=== PATIENT | male | born 1950 | race African-American/Black ===

== ENCOUNTER 2022-09-10 22:13 | Inpatient (IN) | payer MEDICARE, OTHER ==
[~2022-09-10] VITALS: Ht 185.4 cm; Wt 105.0 kg
[2022-09-10 23:13] LABS: Basophils # (auto) 0 10 ^3/uL (0-0.2); Basophils % (auto) 0.9 % (0.0-2.0); Eosinophils # (auto) 0.2 10 ^3/uL (0-0.8); Eosinophils % (auto) 4.7 % (0.0-7.0); Hematocrit 38.1 % (41.0-53.0); Hemoglobin 12.5 g/dL (13.5-17.5); Lymphocytes # (auto) 1.2 10 ^3/uL (0.4-5.4); Mean Corpuscular Hgb Conc. 32.8 g/dL (32.0-36.0); Mean Corpuscular Volume 94.7 fL (80.0-100.0); Monocytes # (auto) 0.4 10 ^3/uL (0-1.3); Monocytes % (auto) 7.5 % (0.0-12.0); Neutrophils # (auto) 3.3 10 ^3/uL (1.6-8.6); Neutrophils % (auto) 62.9 % (37.0-80.0); Nucleated Red Blood Cells % 0.2 %; Red Blood Cells 4.03 10^6/uL (4.5-5.90); Red Cell Distribution Width 17.3 % (11.8-14.3); White Blood Cell 5.2 10^3/uL (4.4-10.8)
[2022-09-10 23:20] LABS: Albumin 3.7 g/dL (3.4-5.0); BUN/Creatinine Ratio 6.1; Calcium 11.3 mg/dL (8.5-10.1); Magnesium 2.3 mg/dL (1.6-2.6); Potassium 4.3 mmol/L (3.5-5.1)
[2022-09-10 23:22] LABS: Bilirubin, Total 0.5 mg/dL (0.2-1.0); Total Protein 7.5 g/dL (6.4-8.2)
[2022-09-11] MEDS ORDERED: DEXTROSE (50%) 50ML SYRG IV PRN (07:00)
[2022-09-11] MEDS ORDERED: ONDANSETRON HCL 4 MG/2 ML VIAL IV PRN (07:00)
[2022-09-11] MEDS: InsuLIN REG 1unit/0.01ml Soln (100units/ml) SC SCH ×4 (08:13→21:12)
[2022-09-11] MEDS: ACCU-CHEK COMFORT CURVE STRIP VI SCH ×4 (08:14→21:12)
[2022-09-11] MEDS: NIFEdipine ER 30 MG TAB PO SCH (09:49)
[2022-09-11] MEDS: CLOPIDOGREL BISULFATE 75 MG TAB PO SCH (09:49)
[2022-09-11] MEDS: SEVELAMER 800 MG TAB PO SCH ×3 (09:50→17:17)
[2022-09-11] MEDS: AZITHROMYCIN 500MG/ 250ML 250 ML IV SCH (09:50)
[2022-09-11] MEDS: cloNIDine HCL 0.1 MG TAB PO PRN ×2 (13:39→21:12)
[2022-09-11 14:20] LABS: Albumin 3.5 g/dL (3.4-5.0); Calcium 10.5 mg/dL (8.5-10.1); Potassium 4.5 mmol/L (3.5-5.1)
[2022-09-11 14:23] LABS: BUN/Creatinine Ratio 6.4; Bilirubin, Total 0.3 mg/dL (0.2-1.0)
[2022-09-11 20:41] VITALS: BP 190/72
[2022-09-11] MEDS ORDERED: LABETALOL HCL 5 MG/ML 4ML SYRINGE IV ONE (21:15)
[2022-09-11] MEDS: ATORVASTATIN 20 MG TAB PO SCH (21:16)
[2022-09-11 22:18] VITALS: BP 190/72
[2022-09-11] MEDS ORDERED: BUPR-60 PO (22:20)
[2022-09-11] MEDS ORDERED: ALLO100T PO (22:20)
[2022-09-11] MEDS ORDERED: CLOP75TA70 PO (22:20)
[2022-09-11] MEDS ORDERED: B-CO-5 PO (22:20)
[2022-09-11] MEDS ORDERED: OMEP-260 PO (22:20)
[2022-09-11] MEDS ORDERED: ATOR-47 PO (22:20)
[2022-09-11] MEDS ORDERED: ASCO-75 PO (22:20)
[2022-09-11 22:30] VITALS: BP 138/63
[2022-09-11] MEDS ORDERED: ALL100T PO (22:31)
[2022-09-11] MEDS ORDERED: CINA60TA PO (22:31)
[2022-09-11] MEDS ORDERED: ASPI81TA10 PO (22:31)
[2022-09-11] MEDS ORDERED: SEVE800T20 PO (22:31)
[2022-09-11] MEDS ORDERED: ONDA-144 PO (22:32)
[2022-09-11] MEDS ORDERED: OMEP-434 PO (22:33)
[2022-09-11] MEDS ORDERED: BISA10SU5 RE (22:34)
[2022-09-11] MEDS ORDERED: CALC0.25 PO (22:34)
[2022-09-11] MEDS ORDERED: TIMO0.5S32 OP (22:36)
[2022-09-11] MEDS ORDERED: NIFE1TAB30 PO (22:39)
[2022-09-11] MEDS ORDERED: INSU100I51 SC (22:41)
[2022-09-11] MEDS ORDERED: INSU1INJ19 SC (22:41)
[2022-09-12 01:39] VITALS: BP 177/91
[2022-09-12] MEDS ORDERED: hydrALAZINE HCL 20 MG/ML VL IV ONE (06:30)
[2022-09-12] MEDS: ACCU-CHEK COMFORT CURVE STRIP VI SCH ×4 (06:42→22:20)
[2022-09-12] MEDS: InsuLIN REG 1unit/0.01ml Soln (100units/ml) SC SCH ×4 (06:43→22:00)
[2022-09-12] MEDS ORDERED: SODIUM CHL 0.9% 1000 ML BAG XX ONE (07:00)
[2022-09-12 09:00] VITALS: BP 180/85
[2022-09-12] MEDS: NIFEdipine ER 30 MG TAB PO SCH (09:01)
[2022-09-12] MEDS: AZITHROMYCIN 500MG/ 250ML 250 ML IV SCH (09:01)
[2022-09-12] MEDS: SEVELAMER 800 MG TAB PO SCH ×4 (09:01→19:25)
[2022-09-12] MEDS: CLOPIDOGREL BISULFATE 75 MG TAB PO SCH (09:01)
[2022-09-12] MEDS: HYDROcodone-ACET 5/325MG TAB PO PRN (13:48)
[2022-09-12 14:01] LABS: Basophils # (auto) 0.1 10 ^3/uL (0-0.2); Basophils % (auto) 0.9 % (0.0-2.0); Eosinophils # (auto) 0 10 ^3/uL (0-0.8); Eosinophils % (auto) 0.6 % (0.0-7.0); Hematocrit 35.1 % (41.0-53.0); Hemoglobin 11.2 g/dL (13.5-17.5); Lymphocytes # (auto) 0.6 10 ^3/uL (0.4-5.4); Lymphocytes % (auto) 8.3 % (10.0-50.0); Mean Corpuscular Hemoglobin 30.8 pg (28.0-32.0); Mean Corpuscular Hgb Conc. 31.9 g/dL (32.0-36.0); Mean Corpuscular Volume 96.5 fL (80.0-100.0); Monocytes # (auto) 0.3 10 ^3/uL (0-1.3); Monocytes % (auto) 4.2 % (0.0-12.0); Neutrophils # (auto) 5.9 10 ^3/uL (1.6-8.6); Nucleated Red Blood Cells % 0.1 %; Red Blood Cells 3.63 10^6/uL (4.5-5.90); Red Cell Distribution Width 17.4 % (11.8-14.3); White Blood Cell 6.9 10^3/uL (4.4-10.8)
[2022-09-12 14:29] LABS: % Iron Saturation 22.5 % (20-55)
[2022-09-12 16:13] VITALS: BP 125/68
[2022-09-12 22:00] VITALS: BP 177/82
[2022-09-12] MEDS: ATORVASTATIN 20 MG TAB PO SCH (22:20)
[2022-09-12 22:51] LABS: Alanine Aminotransferase 19 U/L (16-61); Alkaline Phosphatase 110 U/L (45-117); Anion Gap 9 (5-15); Aspartate Aminotransferase 18 U/L (15-37); Bilirubin, Total 0.2 mg/dL (0.2-1.0); Blood Urea Nitrogen 27 mg/dL (7-18); Calcium 10.6 mg/dL (8.5-10.1); Carbon Dioxide 30 mmol/L (21-32); Chloride 97 mmol/L (98-107); GFR African American 17 mL/min; GFR Non-African American 14 mL/min; Glucose 81 mg/dL (74-106); Sodium 136 mmol/L (136-145); Total Protein 6.8 g/dL (6.4-8.2)
[2022-09-13 05:00] VITALS: BP 135/72
[2022-09-13] MEDS: InsuLIN REG 1unit/0.01ml Soln (100units/ml) SC SCH ×4 (06:38→20:50)
[2022-09-13] MEDS: ACCU-CHEK COMFORT CURVE STRIP VI SCH ×4 (06:38→20:50)
[2022-09-13 08:00] VITALS: BP 193/84
[2022-09-13] MEDS: cloNIDine HCL 0.1 MG TAB PO PRN (08:11)
[2022-09-13 09:51] LABS: Basophils # (auto) 0.1 10 ^3/uL (0-0.2); Basophils % (auto) 1.3 % (0.0-2.0); Eosinophils # (auto) 0.2 10 ^3/uL (0-0.8); Eosinophils % (auto) 2.6 % (0.0-7.0); Hematocrit 33.3 % (41.0-53.0); Hemoglobin 10.9 g/dL (13.5-17.5); Lymphocytes # (auto) 1.2 10 ^3/uL (0.4-5.4); Mean Corpuscular Hemoglobin 30.9 pg (28.0-32.0); Mean Corpuscular Hgb Conc. 32.9 g/dL (32.0-36.0); Monocytes # (auto) 0.7 10 ^3/uL (0-1.3); Monocytes % (auto) 9.3 % (0.0-12.0); Neutrophils # (auto) 5.4 10 ^3/uL (1.6-8.6); Neutrophils % (auto) 70.8 % (37.0-80.0); Nucleated Red Blood Cells % 0.1 %; Red Blood Cells 3.54 10^6/uL (4.5-5.90); Red Cell Distribution Width 17.8 % (11.8-14.3); White Blood Cell 7.6 10^3/uL (4.4-10.8)
[2022-09-13 10:02] LABS: BUN/Creatinine Ratio 5.7; Calcium 10.8 mg/dL (8.5-10.1); Potassium 4.7 mmol/L (3.5-5.1)
[2022-09-13] MEDS: CLOPIDOGREL BISULFATE 75 MG TAB PO SCH (10:13)
[2022-09-13] MEDS: AZITHROMYCIN 500MG/ 250ML 250 ML IV SCH (10:13)
[2022-09-13] MEDS: PANTOPRAZOLE 40 MG TAB PO SCH (10:14)
[2022-09-13] MEDS: NIFEdipine ER 30 MG TAB PO SCH (10:14)
[2022-09-13 12:00] VITALS: BP 143/72
[2022-09-13] MEDS ORDERED: SODIUM CHL 0.9% 1000 ML BAG XX ONE (12:00)
[2022-09-13] MEDS: SEVELAMER 800 MG TAB PO SCH ×2 (12:14→17:44)
[2022-09-13] MEDS: HYDROcodone-ACET 5/325MG TAB PO PRN (14:07)
[2022-09-13 16:00] VITALS: BP 125/61
[2022-09-13] MEDS: ATORVASTATIN 20 MG TAB PO SCH (20:50)
[2022-09-13 22:00] VITALS: BP 156/62
[2022-09-14] MEDS ORDERED: hydrALAZINE HCL 20 MG/ML VL IV PRN (01:30)
[2022-09-14 05:00] VITALS: BP 129/63
[2022-09-14] MEDS: InsuLIN REG 1unit/0.01ml Soln (100units/ml) SC SCH ×4 (05:56→22:00)
[2022-09-14] MEDS: ACCU-CHEK COMFORT CURVE STRIP VI SCH ×4 (05:57→23:27)
[2022-09-14 06:37] LABS: Basophils # (auto) 0 10 ^3/uL (0-0.2); Basophils % (auto) 0.5 % (0.0-2.0); Eosinophils # (auto) 0.2 10 ^3/uL (0-0.8); Eosinophils % (auto) 2.1 % (0.0-7.0); Hematocrit 34.3 % (41.0-53.0); Hemoglobin 11.2 g/dL (13.5-17.5); Lymphocytes # (auto) 1.1 10 ^3/uL (0.4-5.4); Lymphocytes % (auto) 13.9 % (10.0-50.0); Mean Corpuscular Hemoglobin 31.1 pg (28.0-32.0); Mean Corpuscular Hgb Conc. 32.6 g/dL (32.0-36.0); Mean Corpuscular Volume 95.5 fL (80.0-100.0); Monocytes # (auto) 0.6 10 ^3/uL (0-1.3); Monocytes % (auto) 7.5 % (0.0-12.0); Neutrophils # (auto) 6.3 10 ^3/uL (1.6-8.6); Nucleated Red Blood Cells % 0.1 %; Red Blood Cells 3.59 10^6/uL (4.5-5.90); Red Cell Distribution Width 18.2 % (11.8-14.3); White Blood Cell 8.2 10^3/uL (4.4-10.8)
[2022-09-14 06:58] LABS: Potassium 4.1 mmol/L (3.5-5.1)
[2022-09-14 07:04] LABS: BUN/Creatinine Ratio 5.4; Calcium 11.2 mg/dL (8.5-10.1)
[2022-09-14 08:00] VITALS: BP 143/67
[2022-09-14] MEDS: SEVELAMER 800 MG TAB PO SCH ×3 (08:08→18:45)
[2022-09-14] MEDS: CLOPIDOGREL BISULFATE 75 MG TAB PO SCH (09:54)
[2022-09-14] MEDS: PANTOPRAZOLE 40 MG TAB PO SCH (09:55)
[2022-09-14] MEDS: NIFEdipine ER 30 MG TAB PO SCH (09:56)
[2022-09-14] MEDS: AZITHROMYCIN 500MG/ 250ML 250 ML IV SCH (10:01)
[2022-09-14] MEDS ORDERED: levoFLOXacin 250 MG TAB PO ONE (10:30)
[2022-09-14 12:00] VITALS: BP 187/71
[2022-09-14] MEDS: NYSTATIN (MOUTH-THROAT) 500,000 UNITS/5 ML SUSP MT SCH ×3 (12:12→22:00)
[2022-09-14 16:00] VITALS: BP 167/68
[2022-09-14 22:00] VITALS: BP 137/59
[2022-09-14] MEDS: ATORVASTATIN 20 MG TAB PO SCH (23:27)
[2022-09-15 05:00] VITALS: BP 148/59
[2022-09-15] MEDS: ACCU-CHEK COMFORT CURVE STRIP VI SCH ×4 (05:49→20:51)
[2022-09-15] MEDS: InsuLIN REG 1unit/0.01ml Soln (100units/ml) SC SCH ×4 (05:49→21:13)
[2022-09-15] MEDS ORDERED: POLYETHYLENE GLYCOL 17 GM PWDR PO ONE (06:00)
[2022-09-15] MEDS: NYSTATIN (MOUTH-THROAT) 500,000 UNITS/5 ML SUSP MT SCH ×4 (06:25→21:14)
[2022-09-15] MEDS: SEVELAMER 800 MG TAB PO SCH ×3 (08:15→17:38)
[2022-09-15] MEDS: cloNIDine HCL 0.1 MG TAB PO PRN (08:16)
[2022-09-15 09:00] VITALS: BP 177/67
[2022-09-15] MEDS ORDERED: levoFLOXacin 250 MG TAB PO SCH ×2 (10:00)
[2022-09-15] MEDS: PANTOPRAZOLE 40 MG TAB PO SCH (10:10)
[2022-09-15] MEDS: CLOPIDOGREL BISULFATE 75 MG TAB PO SCH (10:10)
[2022-09-15] MEDS: NIFEdipine ER 30 MG TAB PO SCH (10:21)
[2022-09-15 13:00] VITALS: BP 167/57
[2022-09-15 17:00] VITALS: BP 154/49
[2022-09-15] MEDS: ATORVASTATIN 20 MG TAB PO SCH (21:14)
[2022-09-15] MEDS: ACETAMINOPHEN 325 MG TAB PO PRN (21:15)
[2022-09-15 22:00] VITALS: BP 130/63
[2022-09-15] MEDS: TIMOLOL MAL 0.5% OPTH(EYE) SOL 5ML OP SCH (22:00)
[2022-09-16 05:00] VITALS: BP 101/55
[2022-09-16] MEDS: NYSTATIN (MOUTH-THROAT) 500,000 UNITS/5 ML SUSP MT SCH ×3 (06:27→18:00)
[2022-09-16] MEDS: InsuLIN REG 1unit/0.01ml Soln (100units/ml) SC SCH ×3 (06:28→17:00)
[2022-09-16] MEDS: ACCU-CHEK COMFORT CURVE STRIP VI SCH ×3 (06:28→17:00)
[2022-09-16] MEDS ORDERED: SODIUM CHL 0.9% 1000 ML BAG XX ONE (07:00)
[2022-09-16 09:00] VITALS: BP 119/65
[2022-09-16 09:39] LABS: Hematocrit 32.8 % (41.0-53.0); Hemoglobin 10.4 g/dL (13.5-17.5)
[2022-09-16] MEDS: PANTOPRAZOLE 40 MG TAB PO SCH (09:49)
[2022-09-16] MEDS: CLOPIDOGREL BISULFATE 75 MG TAB PO SCH (09:49)
[2022-09-16] MEDS: SEVELAMER 800 MG TAB PO SCH ×3 (09:49→18:00)
[2022-09-16] MEDS: ACETAMINOPHEN 325 MG TAB PO PRN (09:57)
[2022-09-16] MEDS ORDERED: ENOXAPARIN SOD 30 MG/0.3 ML SYRINGE SC SCH (10:00)
[2022-09-16] MEDS: TIMOLOL MAL 0.5% OPTH(EYE) SOL 5ML OP SCH (10:51)
[2022-09-16 11:12] LABS: % Iron Saturation 36.8 % (20-55)
[2022-09-16 13:00] VITALS: BP 155/65
[2022-09-16 13:27] LABS: Free T4 (Free Thyroxine) 1.18 ng/dL (0.89-1.76)
[2022-09-16 13:28] LABS: Folate (Folic Acid) > 24.00 ng/mL (5.38-24)
[2022-09-16 13:41] VITALS: BP 141/56
[2022-09-16] MEDS: NIFEdipine ER 30 MG TAB PO SCH (14:36)
[2022-09-16 17:00] VITALS: BP 160/60
== END 2022-09-16 19:30 | disposition home health service (06) | DRG 70 ==
LOC: ER 22:16 → OVERFLOW 09-11 06:53 → CENTRAL 09-11 20:33 → TELE-CENTR 09-11 21:48
PROVIDERS: ADMIT Nurse Practitioner; ATTEND Internal Medicine Pulmonary Disease
PROC: 5A1D70Z Performance of Urinary Filtration, Intermittent, Less than 6 Hours Per Day (ICD-10-PCS; principal; 2022-09-11)
PROC: 5A1D70Z Performance of Urinary Filtration, Intermittent, Less than 6 Hours Per Day (ICD-10-PCS; 2022-09-13)
PROC: 5A1D70Z Performance of Urinary Filtration, Intermittent, Less than 6 Hours Per Day (ICD-10-PCS; 2022-09-16)
DX: G93.41 Metabolic encephalopathy (principal); N18.6 End stage renal disease; E46 Unspecified protein-calorie malnutrition; I12.0 Hypertensive chronic kidney disease with stage 5 chronic kidney disease or end stage renal disease; D63.1 Anemia in chronic kidney disease; E11.22 Type 2 diabetes mellitus with diabetic chronic kidney disease; Z99.2 Dependence on renal dialysis; R91.1 Solitary pulmonary nodule; Z20.822 Contact with and (suspected) exposure to COVID-19; E11.40 Type 2 diabetes mellitus with diabetic neuropathy, unspecified; E78.5 Hyperlipidemia, unspecified; I25.10 Atherosclerotic heart disease of native coronary artery without angina pectoris; Z68.27 Body mass index [BMI] 27.0-27.9, adult; Z88.0 Allergy status to penicillin; Z89.431 Acquired absence of right foot; Z99.3 Dependence on wheelchair
CPT/HCPCS: 36415; 70450; 70551; 71045; 71250; 76536; 80048; 80053; 82140; 82607; 82728; 82746; 82962; 83540; 83550; 83605; 83735; 83880; 84439; 84443; 84484; 85014; 85018; 85025; 87040; 87426; 90935; 93005; 93971; 95819; 96365; 96366; 99291; G0378; J1815; J3490

== ENCOUNTER 2023-03-28 12:05 | Inpatient (IN) | payer MEDICARE, OTHER ==
[~2023-03-28] VITALS: Ht 182.9 cm; Wt 80.4 kg
[~2023-03-28 12:05] MED LIST: ALL100T PO; ASCO500T6 PO; ASPI81TA10 PO; ATOR-47 PO; B-CO-5 PO; BISA10SU5 RE; BUPR-60 PO; CALC0.25 PO; CINA60TA10 PO; CLOP75TA70 PO; INSU100I51 SC; INSU1INJ19 SC; NIFE1TAB30 PO; OMEP-434 PO; OMEP1CAP70 PO; ONDA-144 PO; SEVE800T20 PO; TIMO0.5S32 OP
[2023-03-28 13:00] VITALS: RESP 16; O2SAT 94
[2023-03-28 13:41] LABS: Basophils # (auto) 0.1 10 ^3/uL (0-0.2); Hematocrit 33.9 % (41.0-53.0); Hemoglobin 10.3 g/dL (13.5-17.5); Lymphocytes # (auto) 0.5 10 ^3/uL (0.4-5.4); Mean Corpuscular Hgb Conc. 30.3 g/dL (32.0-36.0); Monocytes # (auto) 0.5 10 ^3/uL (0-1.3)
[2023-03-28 13:43] LABS: Basophils % (auto) 0.7 % (0.0-2.0); Eosinophils # (auto) 0 10 ^3/uL (0-0.8); Eosinophils % (auto) 0.5 % (0.0-7.0); Lymphocytes % (auto) 5.7 % (10.0-50.0); Mean Corpuscular Volume 85.8 fL (80.0-100.0); Monocytes % (auto) 5.6 % (0.0-12.0); Neutrophils # (auto) 7.8 10 ^3/uL (1.6-8.6); Neutrophils % (auto) 87.5 % (37.0-80.0); Red Blood Cells 3.95 10^6/uL (4.5-5.90); Red Cell Distribution Width 17.2 % (11.8-14.3); White Blood Cell 8.9 10^3/uL (4.4-10.8)
[2023-03-28 14:03] LABS: Albumin 2.7 g/dL (3.4-5.0); BUN/Creatinine Ratio 12.9 (10.0-20.0); Calcium 9.6 mg/dL (8.5-10.1); Magnesium 2.5 mg/dL (1.6-2.6)
[2023-03-28 14:06] LABS: Bilirubin, Total 0.3 mg/dL (0.2-1.0); Total Protein 6.4 g/dL (6.4-8.2)
[2023-03-28 14:24] LABS: Potassium 6.7 mmol/L (3.5-5.1)
[2023-03-28] MEDS ORDERED: InsuLIN REG 1unit/0.01ml Soln (100units/ml) IV ONE (14:45)
[2023-03-28] MEDS ORDERED: ALBUTEROL SULF 2.5 MG/0.5ML(0.5%) NEB SOLN NEB ONE (14:45)
[2023-03-28] MEDS ORDERED: SODIUM ZIRCONIUM CYCL 10 GM PAK PO ONE (14:45)
[2023-03-28] MEDS ORDERED: SODIUM BICARBONATE 8.4 % INJ 50ML VIAL IV ONE (14:45)
[2023-03-28] MEDS ORDERED: DEXTROSE (50%) 50ML SYRG IV ONE (14:45)
[2023-03-28] MEDS ORDERED: DOCUSATE SOD 100 MG CAP PO PRN (16:30)
[2023-03-28] MEDS ORDERED: ONDANSETRON HCL 4 MG/2 ML VIAL IV PRN (16:30)
[2023-03-28] MEDS ORDERED: SODIUM CHL 0.9% 1000 ML BAG XX ONE (16:45)
[2023-03-28] MEDS ORDERED: DEXTROSE (50%) 50ML SYRG IV PRN (16:45)
[2023-03-28 17:30] LABS: Magnesium 2.3 mg/dL (1.6-2.6); Phosphorus 3.2 mg/dL (2.5-4.90)
[2023-03-28 18:59] LABS: INR 1.04 (0.9-1.15)
[2023-03-28] MEDS ORDERED: CLOP75TA28 PO (18:59)
[2023-03-28] MEDS ORDERED: NIF10C PO (18:59)
[2023-03-28] MEDS ORDERED: ALLO100T PO (18:59)
[2023-03-28] MEDS ORDERED: HYDR-4072 PO (18:59)
[2023-03-28] MEDS ORDERED: CINA30TA2 PO (18:59)
[2023-03-28] MEDS ORDERED: ASPI81TA10 PO (18:59)
[2023-03-28] MEDS ORDERED: BUPR-346 PO (18:59)
[2023-03-28] MEDS ORDERED: ATOR-47 PO (18:59)
[2023-03-28] MEDS: ACCU-CHEK COMFORT CURVE STRIP VI SCH ×2 (19:30→22:00)
[2023-03-28] MEDS: InsuLIN REG 1unit/0.01ml Soln (100units/ml) SC SCH ×2 (19:31→22:00)
[2023-03-28 19:50] VITALS: PULSE 95; RESP 90; O2SAT 95
[2023-03-28] MEDS ORDERED: EPOETIN ALFA-EPBX 4,000 UNIT/ML VIAL SC ONE (21:00)
[2023-03-28] MEDS: BISACODYL 10 MG RECT SUPP PR SCH (22:00)
[2023-03-28] MEDS: ASCORBIC ACID 500 MG TAB PO SCH (22:00)
[2023-03-28] MEDS: TIMOLOL MAL 0.5% OPTH(EYE) SOL 5ML OP SCH (22:00)
[2023-03-28] MEDS: ATORVASTATIN 20 MG TAB PO SCH (22:00)
[2023-03-28] MEDS: SEVELAMER 800 MG TAB PO SCH (22:00)
[2023-03-28 22:12] VITALS: PULSE 88; RESP 20; O2SAT 96
[2023-03-28 22:21] VITALS: BP 135/102; PULSE 92; TEMP 99.7; O2SAT 97
[2023-03-29] VITALS (18 sets, daily range): BP systolic 121–184; BP diastolic 29–62; PULSE 66–105; RESP 10–96; TEMP 97.6–99.3; O2SAT 91–100
[2023-03-29] MEDS ORDERED: hydrALAZINE HCL 20 MG/ML VL IV PRN (05:45)
[2023-03-29 06:29] LABS: Basophils # (auto) 0.1 10 ^3/uL (0-0.2); Eosinophils # (auto) 0.2 10 ^3/uL (0-0.8); Eosinophils % (auto) 2.6 % (0.0-7.0); Neutrophils # (auto) 5.9 10 ^3/uL (1.6-8.6)
[2023-03-29 06:31] LABS: Basophils % (auto) 0.8 % (0.0-2.0); Hematocrit 31.9 % (41.0-53.0); Hemoglobin 9.9 g/dL (13.5-17.5); Lymphocytes % (auto) 12.1 % (10.0-50.0); Mean Corpuscular Hemoglobin 26.3 pg (28.0-32.0); Monocytes # (auto) 0.9 10 ^3/uL (0-1.3); Monocytes % (auto) 11.2 % (0.0-12.0); Neutrophils % (auto) 73.3 % (37.0-80.0); Red Blood Cells 3.76 10^6/uL (4.5-5.90); White Blood Cell 8.1 10^3/uL (4.4-10.8)
[2023-03-29 06:45] LABS: Potassium 4.3 mmol/L (3.5-5.1)
[2023-03-29 06:59] LABS: Albumin 2.5 g/dL (3.4-5.0); BUN/Creatinine Ratio 9.8 (10.0-20.0); Bilirubin, Total 0.2 mg/dL (0.2-1.0); Calcium 9.6 mg/dL (8.5-10.1); Total Protein 6.6 g/dL (6.4-8.2)
[2023-03-29] MEDS: ACCU-CHEK COMFORT CURVE STRIP VI SCH ×4 (07:00→22:00)
[2023-03-29] MEDS: InsuLIN REG 1unit/0.01ml Soln (100units/ml) SC SCH ×4 (07:00→22:00)
[2023-03-29] MEDS: ASCORBIC ACID 500 MG TAB PO SCH ×2 (08:22→22:04)
[2023-03-29] MEDS: SEVELAMER 800 MG TAB PO SCH ×3 (08:22→22:03)
[2023-03-29] MEDS: ASPirin-EC 81 mg tab PO SCH (08:22)
[2023-03-29] MEDS: NIFEdipine ER 30 MG TAB PO SCH (08:24)
[2023-03-29] MEDS: buPROPion HCL 75 MG TAB PO SCH (08:24)
[2023-03-29] MEDS: CLOPIDOGREL BISULFATE 75 MG TAB PO SCH (08:24)
[2023-03-29] MEDS: ALLOPURINOL 100 MG TAB PO SCH (08:25)
[2023-03-29] MEDS: B-COMPLEX W/ C & FOLIC ACID(NEPHROVITE TAB) PO SCH (08:25)
[2023-03-29] MEDS ORDERED: CALCITRIOL 0.25 MCG CAP PO SCH (10:00)
[2023-03-29] MEDS ORDERED: OMEPRAZOLE 40MG/20ML ORAL SUSP PO SCH (10:00)
[2023-03-29] MEDS: CINACALCET HYDROCHLORIDE 30 MG TAB PO SCH (11:58)
[2023-03-29] MEDS: TIMOLOL MAL 0.5% OPTH(EYE) SOL 5ML OP SCH ×2 (11:58→21:48)
[2023-03-29] MEDS: HYDROcodone-ACET 10/325MG TAB PO PRN (12:49)
[2023-03-29] MEDS: ATORVASTATIN 20 MG TAB PO SCH (22:04)
[2023-03-29] MEDS: BISACODYL 10 MG RECT SUPP PR SCH (22:04)
[2023-03-30] MEDS: HYDROcodone-ACET 10/325MG TAB PO PRN (00:09)
[2023-03-30 05:00] VITALS: BP 145/45; PULSE 67; RESP 18; TEMP 98.4; O2SAT 100
[2023-03-30] MEDS: InsuLIN REG 1unit/0.01ml Soln (100units/ml) SC SCH ×4 (06:00→22:32)
[2023-03-30] MEDS: SEVELAMER 800 MG TAB PO SCH ×3 (06:00→22:39)
[2023-03-30] MEDS: ACCU-CHEK COMFORT CURVE STRIP VI SCH ×4 (06:08→22:10)
[2023-03-30 08:31] VITALS: BP 148/49; PULSE 69; RESP 19; TEMP 97.9; O2SAT 100
[2023-03-30] MEDS: CINACALCET HYDROCHLORIDE 30 MG TAB PO SCH (10:00)
[2023-03-30] MEDS: OMEPRAZOLE-SOD BICARB 20 MG POWDER GT SCH (10:00)
[2023-03-30] MEDS: CLOPIDOGREL BISULFATE 75 MG TAB PO SCH (10:22)
[2023-03-30] MEDS: B-COMPLEX W/ C & FOLIC ACID(NEPHROVITE TAB) PO SCH (10:22)
[2023-03-30] MEDS: buPROPion HCL 75 MG TAB PO SCH (10:22)
[2023-03-30] MEDS: ASPirin-EC 81 mg tab PO SCH (10:23)
[2023-03-30] MEDS: ALLOPURINOL 100 MG TAB PO SCH (10:23)
[2023-03-30] MEDS: ASCORBIC ACID 500 MG TAB PO SCH ×2 (10:23→22:10)
[2023-03-30] MEDS: NIFEdipine ER 30 MG TAB PO SCH (10:24)
[2023-03-30] MEDS: TIMOLOL MAL 0.5% OPTH(EYE) SOL 5ML OP SCH ×2 (10:24→22:10)
[2023-03-30 12:54] VITALS: BP 148/40; PULSE 67; RESP 20; TEMP 97.6; O2SAT 99
[2023-03-30 16:53] VITALS: BP 156/43; PULSE 65; RESP 19; TEMP 98.3; O2SAT 97
[2023-03-30 22:00] VITALS: BP 160/54; PULSE 69; RESP 17; TEMP 80.4; O2SAT 95
[2023-03-30] MEDS: DOCUSATE SOD 100 MG CAP PO SCH (22:10)
[2023-03-30] MEDS: ATORVASTATIN 20 MG TAB PO SCH (22:10)
[2023-03-31 05:00] VITALS: BP 149/55; PULSE 75; RESP 17; TEMP 98.2; O2SAT 91
[2023-03-31] MEDS: ACCU-CHEK COMFORT CURVE STRIP VI SCH ×2 (05:51→11:56)
[2023-03-31] MEDS: InsuLIN REG 1unit/0.01ml Soln (100units/ml) SC SCH ×2 (05:51→11:56)
[2023-03-31] MEDS: SEVELAMER 800 MG TAB PO SCH ×2 (06:00→11:56)
[2023-03-31 06:05] LABS: Hemoglobin 9.6 g/dL (13.5-17.5); Lymphocytes # (auto) 1.3 10 ^3/uL (0.4-5.4)
[2023-03-31 06:06] LABS: Basophils # (auto) 0.1 10 ^3/uL (0-0.2); Basophils % (auto) 0.8 % (0.0-2.0); Eosinophils # (auto) 0.4 10 ^3/uL (0-0.8); Eosinophils % (auto) 4.2 % (0.0-7.0); Hematocrit 30.7 % (41.0-53.0); Lymphocytes % (auto) 14.5 % (10.0-50.0); Mean Corpuscular Hemoglobin 26.1 pg (28.0-32.0); Mean Corpuscular Hgb Conc. 31.1 g/dL (32.0-36.0); Mean Corpuscular Volume 83.7 fL (80.0-100.0); Monocytes # (auto) 0.6 10 ^3/uL (0-1.3); Neutrophils # (auto) 6.6 10 ^3/uL (1.6-8.6); Neutrophils % (auto) 73.5 % (37.0-80.0); Red Blood Cells 3.67 10^6/uL (4.5-5.90); Red Cell Distribution Width 16.6 % (11.8-14.3); White Blood Cell 8.9 10^3/uL (4.4-10.8)
[2023-03-31 06:22] LABS: Albumin 2.4 g/dL (3.4-5.0); Calcium 8.8 mg/dL (8.5-10.1)
[2023-03-31 06:25] LABS: BUN/Creatinine Ratio 13.6 (10.0-20.0); Bilirubin, Total 0.2 mg/dL (0.2-1.0); Total Protein 5.9 g/dL (6.4-8.2)
[2023-03-31 06:30] LABS: Potassium 5.9 mmol/L (3.5-5.1)
[2023-03-31] MEDS ORDERED: SODIUM CHL 0.9% 1000 ML BAG XX ONE (07:00)
[2023-03-31 08:00] VITALS: PULSE 75; RESP 17
[2023-03-31 08:57] VITALS: BP 151/54; PULSE 75; RESP 17; TEMP 98.3; O2SAT 92
[2023-03-31] MEDS: NIFEdipine ER 30 MG TAB PO SCH (10:00)
[2023-03-31] MEDS: CINACALCET HYDROCHLORIDE 30 MG TAB PO SCH (10:00)
[2023-03-31] MEDS ORDERED: FAMOTIDINE (10MG/ML) 2ML VL IV SCH (10:00)
[2023-03-31] MEDS: OMEPRAZOLE-SOD BICARB 20 MG POWDER GT SCH (10:00)
[2023-03-31] MEDS: DOCUSATE SOD 100 MG CAP PO SCH (10:25)
[2023-03-31] MEDS: ALLOPURINOL 100 MG TAB PO SCH (10:25)
[2023-03-31] MEDS: B-COMPLEX W/ C & FOLIC ACID(NEPHROVITE TAB) PO SCH (10:25)
[2023-03-31] MEDS: CLOPIDOGREL BISULFATE 75 MG TAB PO SCH (10:26)
[2023-03-31] MEDS: buPROPion HCL 75 MG TAB PO SCH (10:26)
[2023-03-31] MEDS: ASCORBIC ACID 500 MG TAB PO SCH (10:26)
[2023-03-31] MEDS: ASPirin-EC 81 mg tab PO SCH (10:26)
[2023-03-31] MEDS: TIMOLOL MAL 0.5% OPTH(EYE) SOL 5ML OP SCH (10:28)
[2023-03-31 13:00] VITALS: BP 156/54; PULSE 72; RESP 21; TEMP 98.3; O2SAT 99
[2023-03-31] MEDS ORDERED: FAMOTIDINE 20 MG TAB PO ONE (14:30)
[2023-03-31 16:39] VITALS: BP 148/49
[2023-03-31 17:00] VITALS: PULSE 80; RESP 18; TEMP 98.2; O2SAT 95
[2023-03-31] MEDS ORDERED: EPOETIN ALFA-EPBX 4,000 UNIT/ML VIAL SC ONE (21:00)
== END 2023-03-31 20:13 | disposition home health service (06) | DRG 637 ==
LOC: EDBD 12:05 → ER 12:05 → OVERFLOW 16:19 → DOU IN ICU 18:05 → TELE-WESTW 03-29 14:55
PROVIDERS: ADMIT Family Medicine; ATTEND Family Medicine
PROC: 5A1D70Z Performance of Urinary Filtration, Intermittent, Less than 6 Hours Per Day (ICD-10-PCS; principal; 2023-03-28)
PROC: 5A1D70Z Performance of Urinary Filtration, Intermittent, Less than 6 Hours Per Day (ICD-10-PCS; 2023-03-31)
DX: E11.649 Type 2 diabetes mellitus with hypoglycemia without coma (principal); E43 Unspecified severe protein-calorie malnutrition; G93.41 Metabolic encephalopathy; I12.0 Hypertensive chronic kidney disease with stage 5 chronic kidney disease or end stage renal disease; L97.919 Non-pressure chronic ulcer of unspecified part of right lower leg with unspecified severity; E87.5 Hyperkalemia; N18.6 End stage renal disease; E11.22 Type 2 diabetes mellitus with diabetic chronic kidney disease; D63.1 Anemia in chronic kidney disease; M1A.9XX0 Chronic gout, unspecified, without tophus (tophi); E11.51 Type 2 diabetes mellitus with diabetic peripheral angiopathy without gangrene; S91.301A Unspecified open wound, right foot, initial encounter; X58.XXXA Exposure to other specified factors, initial encounter; E78.00 Pure hypercholesterolemia, unspecified; F32.A Depression, unspecified; K21.9 Gastro-esophageal reflux disease without esophagitis; K59.00 Constipation, unspecified; Z88.0 Allergy status to penicillin; Z99.2 Dependence on renal dialysis; Z91.158 Patient's noncompliance with renal dialysis for other reason; Y93.89 Activity, other specified; Y92.89 Other specified places as the place of occurrence of the external cause; Y99.8 Other external cause status; R58 Hemorrhage, not elsewhere classified
CPT/HCPCS: 36415; 70450; 71045; 80053; 82962; 83735; 84100; 84132; 84484; 85025; 85610; 87081; 90935; 93005; 94640; G0378; J1815

== ENCOUNTER 2023-04-14 19:30 | Emergency (ER) | payer MEDICARE, OTHER ==
[~2023-04-14] VITALS: Ht 185.4 cm; Wt 81.0 kg
[~2023-04-14 19:30] MED LIST changes: +ALLO100T PO; +BUPR-346 PO; +CINA30TA2 PO; +CLOP75TA28 PO; +HYDR-4072 PO; +NIF10C PO
[2023-04-14 21:49] VITALS: BP 127/47; PULSE 88; RESP 18; TEMP 98.5; O2SAT 99
[2023-04-14 22:20] LABS: Basophils # (auto) 0 10 ^3/uL (0-0.2); Basophils % (auto) 0.4 % (0.0-2.0); Eosinophils # (auto) 0.2 10 ^3/uL (0-0.8); Eosinophils % (auto) 1.9 % (0.0-7.0); Hematocrit 30.8 % (41.0-53.0); Hemoglobin 9.4 g/dL (13.5-17.5); Lymphocytes # (auto) 1.2 10 ^3/uL (0.4-5.4); Lymphocytes % (auto) 11.6 % (10.0-50.0); Mean Corpuscular Hemoglobin 25.5 pg (28.0-32.0); Mean Corpuscular Hgb Conc. 30.5 g/dL (32.0-36.0); Mean Corpuscular Volume 83.6 fL (80.0-100.0); Monocytes # (auto) 0.6 10 ^3/uL (0-1.3); Monocytes % (auto) 5.7 % (0.0-12.0); Neutrophils # (auto) 8.5 10 ^3/uL (1.6-8.6); Neutrophils % (auto) 80.4 % (37.0-80.0); Red Blood Cells 3.68 10^6/uL (4.5-5.90); White Blood Cell 10.6 10^3/uL (4.4-10.8)
[2023-04-14 22:44] LABS: Albumin 2.4 g/dL (3.4-5.0); Calcium 9.5 mg/dL (8.5-10.1); Potassium 4.3 mmol/L (3.5-5.1)
[2023-04-14 22:49] LABS: BUN/Creatinine Ratio 9.3 (10.0-20.0); Bilirubin, Total 0.2 mg/dL (0.2-1.0); Total Protein 7.5 g/dL (6.4-8.2)
[2023-04-15] MEDS ORDERED: VANCOMYCIN 1GM/250ML 250 ML IV ONE
[2023-04-15] MEDS ORDERED: CIPROFLOXACIN 400MG/200ML 200 ML IV ONE
== END 2023-04-14 23:45 | disposition left against medical advice (07) ==
LOC: ER 19:31
DX: M86.9 Osteomyelitis, unspecified (principal); K21.9 Gastro-esophageal reflux disease without esophagitis; E78.5 Hyperlipidemia, unspecified; I12.0 Hypertensive chronic kidney disease with stage 5 chronic kidney disease or end stage renal disease; E11.22 Type 2 diabetes mellitus with diabetic chronic kidney disease; N18.6 End stage renal disease; Z88.0 Allergy status to penicillin; Z79.899 Other long term (current) drug therapy; Z79.84 Long term (current) use of oral hypoglycemic drugs
CPT/HCPCS: 36415; 73700; 80053; 83605; 83690; 85025; 87040

== ENCOUNTER 2023-04-23 04:57 | Inpatient (IN) | payer MEDICARE, OTHER ==
[~2023-04-23] VITALS: Ht 182.9 cm; Wt 87.7 kg
[2023-04-23 06:05] VITALS: PULSE 81; RESP 13; O2SAT 96
[2023-04-23 07:07] LABS: Eosinophils # (auto) 0.1 10 ^3/uL (0-0.8); Hemoglobin 9.2 g/dL (13.5-17.5); Red Blood Cells 3.67 10^6/uL (4.5-5.90); Red Cell Distribution Width 17.2 % (11.8-14.3)
[2023-04-23 07:11] LABS: Basophils # (auto) 0.1 10 ^3/uL (0-0.2); Basophils % (auto) 0.6 % (0.0-2.0); Eosinophils % (auto) 0.4 % (0.0-7.0); Lymphocytes # (auto) 0.7 10 ^3/uL (0.4-5.4); Lymphocytes % (auto) 5.1 % (10.0-50.0); Mean Corpuscular Hemoglobin 25.2 pg (28.0-32.0); Mean Corpuscular Hgb Conc. 30.8 g/dL (32.0-36.0); Mean Corpuscular Volume 81.9 fL (80.0-100.0); Monocytes # (auto) 0.8 10 ^3/uL (0-1.3); Monocytes % (auto) 5.6 % (0.0-12.0); Neutrophils % (auto) 88.3 % (37.0-80.0); White Blood Cell 13.6 10^3/uL (4.4-10.8)
[2023-04-23 07:14] LABS: Alanine Aminotransferase 12 U/L (7-40); Albumin 3.3 g/dL (3.2-4.8); Alkaline Phosphatase 180 U/L (46-116); Anion Gap 7.4 (5-15); Aspartate Aminotransferase 13 U/L (13-40); Blood Urea Nitrogen 24 mg/dL (9-23); Calcium 8.6 mg/dL (8.5-10.1); Carbon Dioxide 30.6 mmol/L (20-30); Chloride 99 mmol/L (98-107); Glucose 79 mg/dL (74-106); Lipase 21 U/L (12-53); Potassium 3.7 mmol/L (3.5-5.1); Sodium 137 mmol/L (136-145)
[2023-04-23 07:15] LABS: Bilirubin, Total 0.2 mg/dL (0.2-1.0); Total Protein 6.3 g/dL (5.7-8.2)
[2023-04-23] MEDS ORDERED: SODIUM CHLORIDE 0.9% 1,000 ML IV ONE (07:15)
[2023-04-23 07:20] LABS: INR 1.09 (0.9-1.15); Partial Thromboplastin Time 33.9 SEC (24.5-34.5); Prothrombin Time 11.4 sec (9.3-11.8)
[2023-04-23 08:04] VITALS: PULSE 78; RESP 20; O2SAT 96
[2023-04-23] MEDS ORDERED: HYDROcodone-ACET 5/325MG TAB PO ONE (09:00)
[2023-04-23] MEDS ORDERED: metroNIDAZOLE 500MG/100ML 100 ML IV ONE (09:00)
[2023-04-23] MEDS ORDERED: SODIUM CHLORIDE 0.9% 1,000 ML IV SCH (10:30)
[2023-04-23] MEDS ORDERED: DOCUSATE SOD 100 MG CAP PO PRN (10:30)
[2023-04-23] MEDS: cefTRIAXone 1GM/50ML D5W 50 ML IV SCH (11:21)
[2023-04-23] MEDS: ACCU-CHEK COMFORT CURVE STRIP VI SCH ×2 (11:47→18:00)
[2023-04-23] MEDS: InsuLIN REG 1unit/0.01ml Soln (100units/ml) SC SCH ×2 (11:48→18:00)
[2023-04-23] MEDS ORDERED: metroNIDAZOLE 500MG/100ML 100 ML IV SCH ×2 (12:00→14:00)
[2023-04-23] MEDS: SEVELAMER 800 MG TAB PO SCH ×2 (14:06→22:00)
[2023-04-23] MEDS: metroNIDAZOLE 500MG/100ML 100 ML IV SCH (18:26)
[2023-04-23 19:46] VITALS: PULSE 83; RESP 22; O2SAT 94
[2023-04-23 21:00] VITALS: PULSE 81; RESP 21; O2SAT 95
[2023-04-23] MEDS: ONDANSETRON HCL 4 MG/2 ML VIAL IV PRN (21:11)
[2023-04-23] MEDS: ASCORBIC ACID 500 MG TAB PO SCH (22:00)
[2023-04-23] MEDS ORDERED: ALLOPURINOL 100 MG TAB PO SCH (22:00)
[2023-04-23] MEDS: buPROPion HCL 100 MG TAB PO SCH (22:00)
[2023-04-23] MEDS: TIMOLOL MAL 0.5% OPTH(EYE) SOL 5ML OP SCH (22:00)
[2023-04-23] MEDS: ATORVASTATIN 20 MG TAB PO SCH (22:00)
[2023-04-24] VITALS (8 sets, daily range): BP systolic 107–189; BP diastolic 43–72; PULSE 59–97; RESP 16–20; TEMP 36.8; O2SAT 95–100
[2023-04-24] MEDS: metroNIDAZOLE 500MG/100ML 100 ML IV SCH ×3 (01:49→17:28)
[2023-04-24] MEDS: ACCU-CHEK COMFORT CURVE STRIP VI SCH ×5 (06:00→23:05)
[2023-04-24] MEDS: InsuLIN REG 1unit/0.01ml Soln (100units/ml) SC SCH ×5 (06:00→23:05)
[2023-04-24] MEDS: SEVELAMER 800 MG TAB PO SCH ×3 (06:00→22:00)
[2023-04-24] MEDS ORDERED: SODIUM CHL 0.9% 1000 ML BAG XX ONE (07:00)
[2023-04-24] MEDS: DEXTROSE (50%) 50ML SYRG IV PRN ×2 (07:05→20:58)
[2023-04-24] MEDS ORDERED: cefTRIAXone 1GM/50ML D5W 50 ML IV SCH (09:00)
[2023-04-24] MEDS: cefTRIAXone 1GM/50ML D5W 50 ML IV SCH (09:00)
[2023-04-24] MEDS: OMEPRAZOLE-SOD BICARB 20 MG POWDER PO SCH (10:00)
[2023-04-24] MEDS: B-COMPLEX W/ C & FOLIC ACID(NEPHROVITE TAB) PO SCH (10:00)
[2023-04-24] MEDS: ASPirin-EC 81 mg tab PO SCH (10:00)
[2023-04-24] MEDS ORDERED: CINACALCET HYDROCHLORIDE 30 MG TAB PO SCH (10:00)
[2023-04-24] MEDS: buPROPion HCL 100 MG TAB PO SCH ×2 (10:00→22:00)
[2023-04-24] MEDS: ALLOPURINOL 100 MG TAB PO SCH (10:00)
[2023-04-24] MEDS: CALCITRIOL 0.25 MCG CAP PO SCH (10:00)
[2023-04-24] MEDS: NIFEdipine ER 30 MG TAB PO SCH (10:00)
[2023-04-24] MEDS: ASCORBIC ACID 500 MG TAB PO SCH ×2 (10:00→22:00)
[2023-04-24] MEDS: TIMOLOL MAL 0.5% OPTH(EYE) SOL 5ML OP SCH ×2 (10:00→22:00)
[2023-04-24] MEDS ORDERED: NIFEdipine 10 MG CAP PO SCH (10:00)
[2023-04-24] MEDS: CLOPIDOGREL BISULFATE 75 MG TAB PO SCH (10:00)
[2023-04-24] MEDS: POLYETHYLENE GLYCOL 17 GM PWDR PO SCH (10:00)
[2023-04-24] MEDS: CINACALCET HCL PO SCH (10:00)
[2023-04-24] MEDS ORDERED: LACTULOSE 20Gm/30ML SOLN PO ONE (11:30)
[2023-04-24] MEDS ORDERED: DOCUSATE SOD 100 MG CAP PO ONE (11:30)
[2023-04-24] MEDS ORDERED: KETOROLAC TROMETH 30 MG/ML 1ML VIAL IV ONE (11:30)
[2023-04-24 13:15] LABS: Eosinophils # (auto) 0.1 10 ^3/uL (0-0.8); Hemoglobin 8.5 g/dL (13.5-17.5); Lymphocytes # (auto) 1.1 10 ^3/uL (0.4-5.4); Monocytes # (auto) 1.2 10 ^3/uL (0-1.3)
[2023-04-24 13:18] LABS: Basophils # (auto) 0.1 10 ^3/uL (0-0.2); Basophils % (auto) 0.3 % (0.0-2.0); Eosinophils % (auto) 0.4 % (0.0-7.0); Hematocrit 28.2 % (41.0-53.0); Lymphocytes % (auto) 4.5 % (10.0-50.0); Mean Corpuscular Hemoglobin 24.7 pg (28.0-32.0); Mean Corpuscular Hgb Conc. 30.2 g/dL (32.0-36.0); Mean Corpuscular Volume 82.1 fL (80.0-100.0); Monocytes % (auto) 4.8 % (0.0-12.0); Neutrophils # (auto) 22.3 10 ^3/uL (1.6-8.6); Nucleated Red Blood Cells % 0.1 %; Red Blood Cells 3.44 10^6/uL (4.5-5.90); Red Cell Distribution Width 17.4 % (11.8-14.3); White Blood Cell 24.8 10^3/uL (4.4-10.8)
[2023-04-24 13:47] LABS: Albumin 3.4 g/dL (3.2-4.8); Alkaline Phosphatase 159 U/L (46-116); Aspartate Aminotransferase 11 U/L (13-40); BUN/Creatinine Ratio 7.3 (10.0-20.0); Blood Urea Nitrogen 30 mg/dL (9-23); Calcium 9.6 mg/dL (8.7-10.4); Chloride 99 mmol/L (98-107); Glucose 72 mg/dL (74-106); Sodium 135 mmol/L (136-145)
[2023-04-24 13:49] LABS: Bilirubin, Total < 0.2 mg/dL (0.2-1.0); Total Protein 6.6 g/dL (5.7-8.2)
[2023-04-24 13:51] LABS: Alanine Aminotransferase < 9 U/L (7-40)
[2023-04-24] MEDS ORDERED: ALBUMIN 25% 100 ML IV PRN (15:45)
[2023-04-24] MEDS: hydrALAZINE HCL 20 MG/ML VL IV PRN (18:27)
[2023-04-24] MEDS ORDERED: hydrALAZINE HCL 20 MG/ML VL IV ONE (20:00)
[2023-04-24] MEDS ORDERED: EPOETIN ALFA-EPBX 4,000 UNIT/ML VIAL SC ONE (21:00)
[2023-04-24] MEDS: ATORVASTATIN 20 MG TAB PO SCH (22:00)
[2023-04-24] MEDS: MORPHINE SULFATE INJ 2 MG/ml SYRG IV PRN (22:18)
[2023-04-25] MEDS: KETOROLAC TROMETH 30 MG/ML 1ML VIAL IV PRN ×2 (01:13→15:26)
[2023-04-25] MEDS: metroNIDAZOLE 500MG/100ML 100 ML IV SCH (01:42)
[2023-04-25 05:00] VITALS: BP 165/60; PULSE 91; RESP 18; TEMP 98.3; O2SAT 98
[2023-04-25] MEDS: hydrALAZINE HCL 20 MG/ML VL IV PRN ×2 (05:24→17:42)
[2023-04-25] MEDS: SEVELAMER 800 MG TAB PO SCH ×3 (05:53→17:48)
[2023-04-25] MEDS: ACCU-CHEK COMFORT CURVE STRIP VI SCH ×4 (05:54→23:10)
[2023-04-25] MEDS: InsuLIN REG 1unit/0.01ml Soln (100units/ml) SC SCH ×4 (05:54→23:12)
[2023-04-25 08:53] VITALS: BP 149/49; PULSE 83; RESP 20; TEMP 98.2; O2SAT 97
[2023-04-25] MEDS: TIMOLOL MAL 0.5% OPTH(EYE) SOL 5ML OP SCH ×2 (10:00→22:00)
[2023-04-25] MEDS: CINACALCET HCL PO SCH (10:00)
[2023-04-25] MEDS ORDERED: VANCOMYCIN PER PHARMACY 0 MG IV SCH (10:45)
[2023-04-25 10:57] LABS: Basophils # (auto) 0.1 10 ^3/uL (0-0.2); Basophils % (auto) 0.4 % (0.0-2.0); Eosinophils # (auto) 0.3 10 ^3/uL (0-0.8); Eosinophils % (auto) 1.8 % (0.0-7.0); Hematocrit 29.6 % (41.0-53.0); Hemoglobin 8.6 g/dL (13.5-17.5); Lymphocytes # (auto) 1.1 10 ^3/uL (0.4-5.4); Lymphocytes % (auto) 7.4 % (10.0-50.0); Mean Corpuscular Hemoglobin 24.3 pg (28.0-32.0); Mean Corpuscular Hgb Conc. 29.1 g/dL (32.0-36.0); Mean Corpuscular Volume 83.6 fL (80.0-100.0); Monocytes # (auto) 0.9 10 ^3/uL (0-1.3); Monocytes % (auto) 5.8 % (0.0-12.0); Neutrophils # (auto) 12.6 10 ^3/uL (1.6-8.6); Neutrophils % (auto) 84.6 % (37.0-80.0); Red Blood Cells 3.55 10^6/uL (4.5-5.90); Red Cell Distribution Width 17.7 % (11.8-14.3); White Blood Cell 14.9 10^3/uL (4.4-10.8)
[2023-04-25] MEDS ORDERED: CEFEPIME 2GM/50ML NS 50 ML IV ONE (11:00)
[2023-04-25] MEDS ORDERED: FLEET MINERAL OIL ENEMA 133 ML PR ONE (11:30)
[2023-04-25 11:41] LABS: Chloride 103 mmol/L (98-107); Sodium 140 mmol/L (136-145)
[2023-04-25 11:42] LABS: Anion Gap 7.7 (5-15); Calcium 9.8 mg/dL (8.7-10.4); Carbon Dioxide 29.3 mmol/L (20-30)
[2023-04-25 11:47] LABS: Glucose 69 mg/dL (74-106)
[2023-04-25 11:48] LABS: BUN/Creatinine Ratio 7.2 (10.0-20.0); Blood Urea Nitrogen 21 mg/dL (9-23)
[2023-04-25] MEDS ORDERED: VANCOMYCIN 1GM/250ML 250 ML IV ONE (12:00)
[2023-04-25] MEDS: buPROPion HCL 100 MG TAB PO SCH ×2 (12:53→22:17)
[2023-04-25] MEDS: B-COMPLEX W/ C & FOLIC ACID(NEPHROVITE TAB) PO SCH (12:53)
[2023-04-25] MEDS: POLYETHYLENE GLYCOL 17 GM PWDR PO SCH (12:54)
[2023-04-25] MEDS: ASPirin-EC 81 mg tab PO SCH (12:54)
[2023-04-25] MEDS: ASCORBIC ACID 500 MG TAB PO SCH ×2 (12:54→22:17)
[2023-04-25] MEDS: CALCITRIOL 0.25 MCG CAP PO SCH (12:54)
[2023-04-25] MEDS: NIFEdipine ER 30 MG TAB PO SCH (12:58)
[2023-04-25 13:00] VITALS: BP 199/69; PULSE 96; RESP 20; O2SAT 99
[2023-04-25] MEDS: ALLOPURINOL 100 MG TAB PO SCH (13:01)
[2023-04-25] MEDS: CLOPIDOGREL BISULFATE 75 MG TAB PO SCH (13:06)
[2023-04-25] MEDS: OMEPRAZOLE-SOD BICARB 20 MG POWDER PO SCH (13:11)
[2023-04-25 17:00] VITALS: BP 165/25; PULSE 75; RESP 18; TEMP 98.1; O2SAT 100
[2023-04-25 17:45] VITALS: BP 151/66; PULSE 79
[2023-04-25 22:00] VITALS: BP 136/29; PULSE 87; RESP 16; TEMP 98.5; O2SAT 96
[2023-04-25] MEDS: DAKINS QUARTER STR 0.125% (NaHypochlorite) 473 ML TOPICAL SOL TOP SCH (22:00)
[2023-04-25] MEDS: MORPHINE SULFATE INJ 2 MG/ml SYRG IV PRN (22:14)
[2023-04-25] MEDS: ATORVASTATIN 20 MG TAB PO SCH (22:16)
[2023-04-26] VITALS (7 sets, daily range): BP systolic 103–153; BP diastolic 47–59; PULSE 76–90; RESP 16–18; TEMP 97.8–98.4; O2SAT 93–99
[2023-04-26] MEDS: KETOROLAC TROMETH 30 MG/ML 1ML VIAL IV PRN ×2 (00:33→19:34)
[2023-04-26] MEDS: ACCU-CHEK COMFORT CURVE STRIP VI SCH ×4 (05:46→23:25)
[2023-04-26] MEDS: InsuLIN REG 1unit/0.01ml Soln (100units/ml) SC SCH ×4 (05:47→23:26)
[2023-04-26] MEDS ORDERED: SODIUM CHL 0.9% 1000 ML BAG XX ONE (07:00)
[2023-04-26] MEDS: ASCORBIC ACID 500 MG TAB PO SCH ×2 (08:32→22:25)
[2023-04-26] MEDS: SEVELAMER 800 MG TAB PO SCH ×3 (08:32→18:41)
[2023-04-26] MEDS: buPROPion HCL 100 MG TAB PO SCH ×2 (08:32→22:25)
[2023-04-26] MEDS: B-COMPLEX W/ C & FOLIC ACID(NEPHROVITE TAB) PO SCH (08:33)
[2023-04-26] MEDS: ALLOPURINOL 100 MG TAB PO SCH (08:33)
[2023-04-26] MEDS: POLYETHYLENE GLYCOL 17 GM PWDR PO SCH (08:33)
[2023-04-26] MEDS: CALCITRIOL 0.25 MCG CAP PO SCH (08:33)
[2023-04-26] MEDS: NIFEdipine ER 30 MG TAB PO SCH (10:00)
[2023-04-26] MEDS: CINACALCET HCL PO SCH (10:00)
[2023-04-26] MEDS: TIMOLOL MAL 0.5% OPTH(EYE) SOL 5ML OP SCH ×2 (10:00→22:00)
[2023-04-26] MEDS: OMEPRAZOLE-SOD BICARB 20 MG POWDER PO SCH (12:01)
[2023-04-26 13:18] LABS: Basophils % (auto) 0.5 % (0.0-2.0); Eosinophils # (auto) 0.4 10 ^3/uL (0-0.8); Hemoglobin 7.9 g/dL (13.5-17.5); Lymphocytes # (auto) 1.2 10 ^3/uL (0.4-5.4); Monocytes # (auto) 0.6 10 ^3/uL (0-1.3); Neutrophils # (auto) 6.9 10 ^3/uL (1.6-8.6)
[2023-04-26 13:20] LABS: Basophils # (auto) 0.1 10 ^3/uL (0-0.2); Eosinophils % (auto) 4.6 % (0.0-7.0); Hematocrit 25.4 % (41.0-53.0); Lymphocytes % (auto) 13.1 % (10.0-50.0); Mean Corpuscular Hemoglobin 25.5 pg (28.0-32.0); Mean Corpuscular Hgb Conc. 31.2 g/dL (32.0-36.0); Mean Corpuscular Volume 81.8 fL (80.0-100.0); Monocytes % (auto) 6.6 % (0.0-12.0); Neutrophils % (auto) 75.2 % (37.0-80.0); Red Cell Distribution Width 17.4 % (11.8-14.3); White Blood Cell 9.1 10^3/uL (4.4-10.8)
[2023-04-26 13:33] LABS: Chloride 102 mmol/L (98-107); Potassium 4.4 mmol/L (3.5-5.1); Sodium 137 mmol/L (136-145)
[2023-04-26 13:34] LABS: Anion Gap 5.8 (5-15); Calcium 9.2 mg/dL (8.5-10.1); Carbon Dioxide 29.2 mmol/L (20-30)
[2023-04-26 13:39] LABS: Glucose 145 mg/dL (74-106)
[2023-04-26 13:45] LABS: BUN/Creatinine Ratio 7.7 (10.0-20.0)
[2023-04-26 14:13] LABS: Blood Urea Nitrogen 31 mg/dL (9-23)
[2023-04-26] MEDS: CEFEPIME 2GM/50ML NS 50 ML IV SCH ×2 (14:34→18:41)
[2023-04-26] MEDS: DAKINS QUARTER STR 0.125% (NaHypochlorite) 473 ML TOPICAL SOL TOP SCH (14:34)
[2023-04-26] MEDS ORDERED: VANCOMYCIN 500 MG in D5W 5% 100 ML IV ONE (15:30)
[2023-04-26] MEDS ORDERED: LATA0.008 EACHEYE (15:55)
[2023-04-26] MEDS ORDERED: DORZ2SOL18 EACHEYE (16:08)
[2023-04-26] MEDS ORDERED: BRIM0.159 OP (16:08)
[2023-04-26] MEDS: ASPirin-EC 81 mg tab PO SCH (18:41)
[2023-04-26] MEDS: CLOPIDOGREL BISULFATE 75 MG TAB PO SCH (18:41)
[2023-04-26] MEDS ORDERED: EPOETIN ALFA-EPBX 10,000 UNIT/1ML VIAL SC ONE (21:00)
[2023-04-26] MEDS: ATORVASTATIN 20 MG TAB PO SCH (22:24)
[2023-04-26] MEDS: MORPHINE SULFATE INJ 2 MG/ml SYRG IV PRN (23:33)
[2023-04-27] VITALS (7 sets, daily range): BP systolic 132–185; BP diastolic 48–79; PULSE 83–91; RESP 14–20; TEMP 97.4–98.5; O2SAT 98–100
[2023-04-27] MEDS: DAKINS QUARTER STR 0.125% (NaHypochlorite) 473 ML TOPICAL SOL TOP SCH ×3 (05:24→21:59)
[2023-04-27] MEDS: InsuLIN REG 1unit/0.01ml Soln (100units/ml) SC SCH ×3 (05:41→19:19)
[2023-04-27] MEDS: ACCU-CHEK COMFORT CURVE STRIP VI SCH ×3 (05:41→19:19)
[2023-04-27] MEDS: SEVELAMER 800 MG TAB PO SCH ×3 (09:05→19:03)
[2023-04-27] MEDS: CINACALCET HCL PO SCH (10:00)
[2023-04-27] MEDS: TIMOLOL MAL 0.5% OPTH(EYE) SOL 5ML OP SCH ×2 (10:00→21:59)
[2023-04-27] MEDS: B-COMPLEX W/ C & FOLIC ACID(NEPHROVITE TAB) PO SCH (11:38)
[2023-04-27] MEDS: POLYETHYLENE GLYCOL 17 GM PWDR PO SCH (11:38)
[2023-04-27] MEDS: ASCORBIC ACID 500 MG TAB PO SCH ×2 (11:38→21:51)
[2023-04-27] MEDS: CALCITRIOL 0.25 MCG CAP PO SCH (11:38)
[2023-04-27] MEDS: ASPirin-EC 81 mg tab PO SCH (11:38)
[2023-04-27] MEDS: OMEPRAZOLE-SOD BICARB 20 MG POWDER PO SCH (11:38)
[2023-04-27] MEDS: ALLOPURINOL 100 MG TAB PO SCH (11:39)
[2023-04-27] MEDS: CLOPIDOGREL BISULFATE 75 MG TAB PO SCH (11:39)
[2023-04-27] MEDS: NIFEdipine ER 30 MG TAB PO SCH (11:39)
[2023-04-27] MEDS: buPROPion HCL 100 MG TAB PO SCH ×2 (11:44→21:51)
[2023-04-27] MEDS: hydrALAZINE HCL 20 MG/ML VL IV PRN (12:37)
[2023-04-27] MEDS: CEFEPIME 2GM/50ML NS 50 ML IV SCH (14:13)
[2023-04-27] MEDS: ONDANSETRON HCL 4 MG/2 ML VIAL IV PRN (14:13)
[2023-04-27] MEDS ORDERED: VANCOMYCIN 500 MG in D5W 5% 100 ML IV ONE (18:00)
[2023-04-27] MEDS: KETOROLAC TROMETH 30 MG/ML 1ML VIAL IV PRN (20:16)
[2023-04-27] MEDS: ATORVASTATIN 20 MG TAB PO SCH (21:51)
[2023-04-27] MEDS: MORPHINE SULFATE INJ 2 MG/ml SYRG IV PRN (21:58)
[2023-04-28] VITALS (7 sets, daily range): BP systolic 110–174; BP diastolic 56–95; PULSE 75–99; RESP 14–20; TEMP 97.5–98.7; O2SAT 93–100
[2023-04-28] MEDS: ACCU-CHEK COMFORT CURVE STRIP VI SCH ×5 (00:05→23:00)
[2023-04-28] MEDS: InsuLIN REG 1unit/0.01ml Soln (100units/ml) SC SCH ×5 (06:00→23:00)
[2023-04-28] MEDS: hydrALAZINE HCL 20 MG/ML VL IV PRN (06:05)
[2023-04-28] MEDS: TIMOLOL MAL 0.5% OPTH(EYE) SOL 5ML OP SCH ×2 (10:00→22:00)
[2023-04-28] MEDS: DAKINS QUARTER STR 0.125% (NaHypochlorite) 473 ML TOPICAL SOL TOP SCH ×2 (10:00→22:00)
[2023-04-28] MEDS: POLYETHYLENE GLYCOL 17 GM PWDR PO SCH (10:00)
[2023-04-28] MEDS: CINACALCET HCL PO SCH (10:00)
[2023-04-28] MEDS: CALCITRIOL 0.25 MCG CAP PO SCH (10:01)
[2023-04-28] MEDS: OMEPRAZOLE-SOD BICARB 20 MG POWDER PO SCH (10:01)
[2023-04-28] MEDS: ASCORBIC ACID 500 MG TAB PO SCH (10:01)
[2023-04-28] MEDS: B-COMPLEX W/ C & FOLIC ACID(NEPHROVITE TAB) PO SCH (10:01)
[2023-04-28] MEDS: ASPirin-EC 81 mg tab PO SCH (10:01)
[2023-04-28] MEDS: SEVELAMER 800 MG TAB PO SCH ×3 (10:02→18:00)
[2023-04-28] MEDS: CLOPIDOGREL BISULFATE 75 MG TAB PO SCH (10:02)
[2023-04-28] MEDS: ALLOPURINOL 100 MG TAB PO SCH (10:02)
[2023-04-28] MEDS: NIFEdipine ER 30 MG TAB PO SCH (10:03)
[2023-04-28] MEDS: buPROPion HCL 100 MG TAB PO SCH (13:07)
[2023-04-28] MEDS: CEFEPIME 2GM/50ML NS 50 ML IV SCH (14:54)
[2023-04-28] MEDS: BRIMONIDINE 0.2% OPTH Soln 5ml EACHEYE SCH (18:00)
[2023-04-28] MEDS: DEXTROSE (50%) 50ML SYRG IV PRN (18:10)
[2023-04-28 21:09] LABS: Basophils # (auto) 0.1 10 ^3/uL (0-0.2); Lymphocytes # (auto) 1.5 10 ^3/uL (0.4-5.4); Monocytes # (auto) 1.1 10 ^3/uL (0-1.3); Monocytes % (auto) 8.7 % (0.0-12.0); Neutrophils # (auto) 9.4 10 ^3/uL (1.6-8.6)
[2023-04-28 21:20] LABS: Albumin 3.4 g/dL (3.2-4.8); Alkaline Phosphatase 130 U/L (46-116); Anion Gap 5.7 (5-15); Aspartate Aminotransferase 14 U/L (13-40); Blood Urea Nitrogen 26 mg/dL (9-23); Calcium 10.5 mg/dL (8.7-10.4); Carbon Dioxide 28.3 mmol/L (20-30); Chloride 102 mmol/L (98-107); Glucose 82 mg/dL (74-106); Sodium 136 mmol/L (136-145)
[2023-04-28 21:21] LABS: Alanine Aminotransferase < 9 U/L (7-40); Bilirubin, Total 0.2 mg/dL (0.2-1.0); Total Protein 6.6 g/dL (5.7-8.2)
[2023-04-28 21:37] LABS: Basophils % (auto) 0.5 % (0.0-2.0); Eosinophils # (auto) 0.5 10 ^3/uL (0-0.8); Eosinophils % (auto) 3.9 % (0.0-7.0); Hematocrit 30.4 % (41.0-53.0); Hemoglobin 9.1 g/dL (13.5-17.5); Lymphocytes % (auto) 11.7 % (10.0-50.0); Mean Corpuscular Hemoglobin 25.1 pg (28.0-32.0); Mean Corpuscular Volume 83.8 fL (80.0-100.0); Neutrophils % (auto) 75.2 % (37.0-80.0); Red Blood Cells 3.63 10^6/uL (4.5-5.90); Red Cell Distribution Width 17.6 % (11.8-14.3); White Blood Cell 12.4 10^3/uL (4.4-10.8)
[2023-04-28] MEDS ORDERED: AMINO ACID INFUSION IN D10W 1,000 ML IV NR (22:00)
[2023-04-28] MEDS: LINEZOLID 600MG/300ML 300 ML IV SCH (22:00)
[2023-04-28] MEDS: LATANOPROST 0.005 % OPTH(EYE) SOL 2.5ML EACHEYE SCH (22:10)
[2023-04-28] MEDS: TIMOLOL MAL 0.5% OPTH(EYE) SOL 5ML EACHEYE SCH (22:10)
[2023-04-28] MEDS: ATORVASTATIN 20 MG TAB PO SCH (23:02)
[2023-04-29] VITALS (23 sets, daily range): BP systolic 98–188; BP diastolic 27–112; PULSE 69–93; RESP 11–25; TEMP 97.6–98.1; O2SAT 91–100
[2023-04-29] MEDS ORDERED: DEXTROSE (50%) 50ML SYRG IV SCH
[2023-04-29] MEDS: hydrALAZINE HCL 20 MG/ML VL IV PRN ×3 (05:22→23:12)
[2023-04-29] MEDS: InsuLIN REG 1unit/0.01ml Soln (100units/ml) SC SCH ×3 (05:34→17:41)
[2023-04-29] MEDS: ACCU-CHEK COMFORT CURVE STRIP VI SCH ×3 (05:35→17:41)
[2023-04-29] MEDS: SEVELAMER 800 MG TAB PO SCH (08:00)
[2023-04-29] MEDS: OMEPRAZOLE-SOD BICARB 20 MG POWDER PO SCH (10:00)
[2023-04-29] MEDS: B-COMPLEX W/ C & FOLIC ACID(NEPHROVITE TAB) PO SCH (10:00)
[2023-04-29] MEDS: TIMOLOL MAL 0.5% OPTH(EYE) SOL 5ML OP SCH (10:00)
[2023-04-29] MEDS: CLOPIDOGREL BISULFATE 75 MG TAB PO SCH (10:00)
[2023-04-29] MEDS: ALLOPURINOL 100 MG TAB PO SCH (10:00)
[2023-04-29] MEDS: DAKINS QUARTER STR 0.125% (NaHypochlorite) 473 ML TOPICAL SOL TOP SCH ×2 (10:00→22:00)
[2023-04-29] MEDS: TIMOLOL MAL 0.5% OPTH(EYE) SOL 5ML EACHEYE SCH ×2 (10:00→22:00)
[2023-04-29] MEDS: CINACALCET HCL PO SCH (10:00)
[2023-04-29] MEDS: POLYETHYLENE GLYCOL 17 GM PWDR PO SCH (10:00)
[2023-04-29] MEDS: ASPirin-EC 81 mg tab PO SCH (10:00)
[2023-04-29] MEDS: CALCITRIOL 0.25 MCG CAP PO SCH (10:00)
[2023-04-29] MEDS: NIFEdipine ER 30 MG TAB PO SCH (10:00)
[2023-04-29 11:00] LABS: Basophils # (auto) 0.1 10 ^3/uL (0-0.2); Hemoglobin 8.6 g/dL (13.5-17.5); Monocytes # (auto) 0.7 10 ^3/uL (0-1.3); Neutrophils # (auto) 7.9 10 ^3/uL (1.6-8.6); White Blood Cell 10.3 10^3/uL (4.4-10.8)
[2023-04-29] MEDS ORDERED: SODIUM CHL 0.9% 1000 ML BAG XX ONE (11:00)
[2023-04-29 11:04] LABS: Basophils % (auto) 0.6 % (0.0-2.0); Eosinophils # (auto) 0.4 10 ^3/uL (0-0.8); Eosinophils % (auto) 4.1 % (0.0-7.0); Hematocrit 28.4 % (41.0-53.0); Lymphocytes # (auto) 1.3 10 ^3/uL (0.4-5.4); Lymphocytes % (auto) 12.6 % (10.0-50.0); Mean Corpuscular Hemoglobin 24.7 pg (28.0-32.0); Mean Corpuscular Hgb Conc. 30.3 g/dL (32.0-36.0); Mean Corpuscular Volume 81.5 fL (80.0-100.0); Monocytes % (auto) 6.4 % (0.0-12.0); Neutrophils % (auto) 76.3 % (37.0-80.0); Red Blood Cells 3.49 10^6/uL (4.5-5.90); Red Cell Distribution Width 17.5 % (11.8-14.3)
[2023-04-29] MEDS: LINEZOLID 600MG/300ML 300 ML IV SCH ×2 (11:35→22:56)
[2023-04-29] MEDS ORDERED: MEROPENEM 1GM IVPB 100 ML IV ONE (11:45)
[2023-04-29 12:04] LABS: Alanine Aminotransferase 10 U/L (7-40); Albumin 3.3 g/dL (3.2-4.8); Alkaline Phosphatase 127 U/L (46-116); Aspartate Aminotransferase 14 U/L (13-40); BUN/Creatinine Ratio 7.4 (10.0-20.0); Bilirubin, Total 0.2 mg/dL (0.2-1.0); Calcium 10.6 mg/dL (8.5-10.1); Chloride 100 mmol/L (98-107); Glucose 141 mg/dL (74-106); Magnesium 2.2 mg/dL (1.6-2.6); Phosphorus 2.8 mg/dL (2.4-5.1); Potassium 4.9 mmol/L (3.5-5.1); Sodium 135 mmol/L (136-145); Total Protein 6.4 g/dL (5.7-8.2); Triglycerides 75 mg/dL (< 150)
[2023-04-29 12:16] LABS: Blood Urea Nitrogen 36 mg/dL (9-23)
[2023-04-29] MEDS ORDERED: IOHEXOL 350 MG/ML 100ML IJ ONE (14:10)
[2023-04-29] MEDS ORDERED: PPN PER PHARMACY 0 ML IV SCH (15:30)
[2023-04-29] MEDS: BRIMONIDINE 0.2% OPTH Soln 5ml EACHEYE SCH (18:00)
[2023-04-29] MEDS ORDERED: AMINO ACID INFUSION IN D10W 1,000 ML IV NR (20:00)
[2023-04-29] MEDS ORDERED: LORazepam 2MG/ML-1ML VIAL IV PRN (21:15)
[2023-04-29] MEDS: LATANOPROST 0.005 % OPTH(EYE) SOL 2.5ML EACHEYE SCH (22:00)
[2023-04-29] MEDS: MEROPENEM 500MG IVPB 50 ML IV SCH (22:56)
[2023-04-30] VITALS (17 sets, daily range): BP systolic 130–199; BP diastolic 38–90; PULSE 69–93; RESP 13–22; TEMP 97.1–98.1; O2SAT 97–100
[2023-04-30] MEDS: ACCU-CHEK COMFORT CURVE STRIP VI SCH ×4 (00:48→18:13)
[2023-04-30] MEDS: InsuLIN REG 1unit/0.01ml Soln (100units/ml) SC SCH ×4 (00:50→18:00)
[2023-04-30] MEDS: LABETALOL HCL 5 MG/ML 4ML SYRINGE IV PRN ×4 (01:36→15:14)
[2023-04-30 05:52] LABS: Eosinophils # (auto) 0.3 10 ^3/uL (0-0.8); Hematocrit 28.3 % (41.0-53.0); Neutrophils # (auto) 8.8 10 ^3/uL (1.6-8.6)
[2023-04-30 05:55] LABS: Basophils # (auto) 0 10 ^3/uL (0-0.2); Basophils % (auto) 0.4 % (0.0-2.0); Eosinophils % (auto) 2.4 % (0.0-7.0); Hemoglobin 8.6 g/dL (13.5-17.5); Lymphocytes # (auto) 1.1 10 ^3/uL (0.4-5.4); Lymphocytes % (auto) 9.8 % (10.0-50.0); Mean Corpuscular Hemoglobin 24.9 pg (28.0-32.0); Mean Corpuscular Hgb Conc. 30.4 g/dL (32.0-36.0); Mean Corpuscular Volume 81.9 fL (80.0-100.0); Monocytes # (auto) 0.8 10 ^3/uL (0-1.3); Monocytes % (auto) 7.5 % (0.0-12.0); Neutrophils % (auto) 79.9 % (37.0-80.0); Red Blood Cells 3.46 10^6/uL (4.5-5.90); Red Cell Distribution Width 17.5 % (11.8-14.3)
[2023-04-30 06:00] LABS: Anion Gap 5.6 (5-15); Carbon Dioxide 29.4 mmol/L (20-30); Chloride 99 mmol/L (98-107); Potassium 3.8 mmol/L (3.5-5.1); Sodium 134 mmol/L (136-145)
[2023-04-30 06:01] LABS: Calcium 10.4 mg/dL (8.7-10.4)
[2023-04-30 06:05] LABS: GFR African American 24 mL/min; GFR Non-African American 20 mL/min
[2023-04-30 06:06] LABS: Albumin 3.3 g/dL (3.2-4.8); BUN/Creatinine Ratio 7.2 (10.0-20.0)
[2023-04-30 06:08] LABS: Phosphorus 2.6 mg/dL (2.4-5.1)
[2023-04-30 06:26] LABS: Glucose 139 mg/dL (74-106)
[2023-04-30 06:35] LABS: Blood Urea Nitrogen 24 mg/dL (9-23)
[2023-04-30] MEDS: hydrALAZINE HCL 20 MG/ML VL IV PRN ×3 (06:39→22:17)
[2023-04-30] MEDS: FAMOTIDINE (10MG/ML) 2ML VL IV SCH (09:25)
[2023-04-30] MEDS: MEROPENEM 500MG IVPB 50 ML IV SCH (09:26)
[2023-04-30] MEDS: LINEZOLID 600MG/300ML 300 ML IV SCH ×2 (09:58→22:18)
[2023-04-30] MEDS: POLYETHYLENE GLYCOL 17 GM PWDR PO SCH (10:00)
[2023-04-30] MEDS: TIMOLOL MAL 0.5% OPTH(EYE) SOL 5ML EACHEYE SCH (10:00)
[2023-04-30] MEDS: DAKINS QUARTER STR 0.125% (NaHypochlorite) 473 ML TOPICAL SOL TOP SCH (10:02)
[2023-04-30] MEDS ORDERED: cloNIDine 0.2 mg/24hr 7DAY PATCH TD SCH (16:00)
[2023-04-30] MEDS: BRIMONIDINE 0.2% OPTH Soln 5ml EACHEYE SCH (19:00)
[2023-04-30] MEDS ORDERED: PPN PER PHARMACY IV NR ×8 (20:00)
[2023-04-30] MEDS: LATANOPROST 0.005 % OPTH(EYE) SOL 2.5ML EACHEYE SCH (22:00)
[2023-04-30] MEDS ORDERED: TIMOLOL MAL 0.5% OPTH(EYE) SOL 5ML OP SCH (22:00)
[2023-05-01] VITALS (18 sets, daily range): BP systolic 142–193; BP diastolic 33–91; PULSE 68–92; RESP 12–22; TEMP 95.7–98.6; O2SAT 91–100
[2023-05-01] MEDS: MEROPENEM 500MG IVPB 50 ML IV SCH (00:08)
[2023-05-01] MEDS: ACCU-CHEK COMFORT CURVE STRIP VI SCH ×4 (00:08→18:22)
[2023-05-01] MEDS: InsuLIN REG 1unit/0.01ml Soln (100units/ml) SC SCH ×4 (00:11→18:00)
[2023-05-01] MEDS: DAKINS QUARTER STR 0.125% (NaHypochlorite) 473 ML TOPICAL SOL TOP SCH ×2 (00:31→11:16)
[2023-05-01] MEDS: LABETALOL HCL 5 MG/ML 4ML SYRINGE IV PRN ×2 (00:37→14:12)
[2023-05-01] MEDS: hydrALAZINE HCL 20 MG/ML VL IV PRN ×2 (04:23→18:31)
[2023-05-01 05:40] LABS: Basophils # (auto) 0.1 10 ^3/uL (0-0.2); Lymphocytes # (auto) 1.2 10 ^3/uL (0.4-5.4); Neutrophils # (auto) 6.5 10 ^3/uL (1.6-8.6); White Blood Cell 8.8 10^3/uL (4.4-10.8)
[2023-05-01 05:46] LABS: Eosinophils # (auto) 0.3 10 ^3/uL (0-0.8); Eosinophils % (auto) 3.8 % (0.0-7.0); Hematocrit 29.1 % (41.0-53.0); Hemoglobin 9.1 g/dL (13.5-17.5); Mean Corpuscular Hemoglobin 25.8 pg (28.0-32.0); Mean Corpuscular Hgb Conc. 31.2 g/dL (32.0-36.0); Mean Corpuscular Volume 82.6 fL (80.0-100.0); Monocytes # (auto) 0.8 10 ^3/uL (0-1.3); Monocytes % (auto) 8.9 % (0.0-12.0); Neutrophils % (auto) 73.3 % (37.0-80.0); Red Blood Cells 3.52 10^6/uL (4.5-5.90); Red Cell Distribution Width 17.9 % (11.8-14.3)
[2023-05-01 05:59] LABS: Albumin 3.4 g/dL (3.2-4.8); Alkaline Phosphatase 123 U/L (46-116); Anion Gap 6.2 (5-15); BUN/Creatinine Ratio 8.2 (10.0-20.0); Calcium 10.9 mg/dL (8.7-10.4); Carbon Dioxide 28.8 mmol/L (20-30); Chloride 96 mmol/L (98-107); Glucose 119 mg/dL (74-106); Potassium 3.9 mmol/L (3.5-5.1); Sodium 131 mmol/L (136-145)
[2023-05-01 06:00] LABS: Aspartate Aminotransferase < 8 U/L (13-40); Bilirubin, Total < 0.2 mg/dL (0.2-1.0); Phosphorus 3.9 mg/dL (2.4-5.1); Total Protein 6.5 g/dL (5.7-8.2)
[2023-05-01 06:25] LABS: Blood Urea Nitrogen 34 mg/dL (9-23)
[2023-05-01 06:26] LABS: Alanine Aminotransferase < 9 U/L (7-40)
[2023-05-01] MEDS: POLYETHYLENE GLYCOL 17 GM PWDR PO SCH (10:00)
[2023-05-01] MEDS ORDERED: DORZOLAMIDE EACHEYE SCH (10:00)
[2023-05-01] MEDS ORDERED: TIMOLOL EACHEYE SCH (10:00)
[2023-05-01] MEDS: FAMOTIDINE (10MG/ML) 2ML VL IV SCH (11:15)
[2023-05-01] MEDS: LINEZOLID 600MG/300ML 300 ML IV SCH (11:16)
[2023-05-01] MEDS: BRIMONIDINE 0.2% OPTH Soln 5ml EACHEYE SCH (18:00)
[2023-05-01] MEDS ORDERED: DEXTROSE 10% 1,000 ML IV ONE (19:00)
[2023-05-01] MEDS ORDERED: DEXTROSE (50%) 50ML SYRG IV ONE (19:15)
[2023-05-01] MEDS ORDERED: PPN PER PHARMACY IV NR ×8 (20:00)
[2023-05-01] MEDS ORDERED: LATANOPROST 0.005 % OPTH(EYE) SOL 2.5ML EACHEYE SCH (21:00)
[2023-05-01] MEDS ORDERED: CEFEPIME 2GM/50ML NS 50 ML IV SCH (22:00)
[2023-05-02] MEDS ORDERED: SODIUM CHL 0.9% 1000 ML BAG XX ONE (07:00)
== END 2023-05-01 20:52 | disposition short-term general hospital (02) | DRG 871 ==
LOC: ER 04:57 → EDBD 04:57 → OVERFLOW 10:37 → EAST 22:02 → DOU IN ICU 04-28 23:46
PROVIDERS: ADMIT Nurse Practitioner Family; ATTEND Internal Medicine
PROC: 5A1D70Z Performance of Urinary Filtration, Intermittent, Less than 6 Hours Per Day (ICD-10-PCS; 2023-04-24)
PROC: 5A1D70Z Performance of Urinary Filtration, Intermittent, Less than 6 Hours Per Day (ICD-10-PCS; 2023-04-26)
PROC: 05H933Z Insertion of Infusion Device into Right Brachial Vein, Percutaneous Approach (ICD-10-PCS; principal; 2023-04-29)
PROC: B54MZZA Ultrasonography of Right Upper Extremity Veins, Guidance (ICD-10-PCS; 2023-04-29)
PROC: 5A1D70Z Performance of Urinary Filtration, Intermittent, Less than 6 Hours Per Day (ICD-10-PCS; 2023-04-29)
DX: A41.02 Sepsis due to Methicillin resistant Staphylococcus aureus (principal); G92.8 Other toxic encephalopathy; I50.41 Acute combined systolic (congestive) and diastolic (congestive) heart failure; N18.6 End stage renal disease; I62.02 Nontraumatic subacute subdural hemorrhage; E46 Unspecified protein-calorie malnutrition; L97.319 Non-pressure chronic ulcer of right ankle with unspecified severity; E11.52 Type 2 diabetes mellitus with diabetic peripheral angiopathy with gangrene; I13.2 Hypertensive heart and chronic kidney disease with heart failure and with stage 5 chronic kidney disease, or end stage renal disease; I70.261 Atherosclerosis of native arteries of extremities with gangrene, right leg; Q61.9 Cystic kidney disease, unspecified; L02.214 Cutaneous abscess of groin; M86.8X6 Other osteomyelitis, lower leg; K52.89 Other specified noninfective gastroenteritis and colitis; D64.9 Anemia, unspecified; E11.22 Type 2 diabetes mellitus with diabetic chronic kidney disease; K56.41 Fecal impaction; E11.69 Type 2 diabetes mellitus with other specified complication; E11.40 Type 2 diabetes mellitus with diabetic neuropathy, unspecified; F17.200 Nicotine dependence, unspecified, uncomplicated; E11.622 Type 2 diabetes mellitus with other skin ulcer; L08.9 Local infection of the skin and subcutaneous tissue, unspecified; L97.529 Non-pressure chronic ulcer of other part of left foot with unspecified severity; E11.649 Type 2 diabetes mellitus with hypoglycemia without coma; M1A.9XX0 Chronic gout, unspecified, without tophus (tophi); E78.5 Hyperlipidemia, unspecified; E11.621 Type 2 diabetes mellitus with foot ulcer; E11.65 Type 2 diabetes mellitus with hyperglycemia; Z88.0 Allergy status to penicillin; Z99.2 Dependence on renal dialysis; Z83.3 Family history of diabetes mellitus; Z80.42 Family history of malignant neoplasm of prostate; Z74.01 Bed confinement status; Z68.26 Body mass index [BMI] 26.0-26.9, adult; Z79.4 Long term (current) use of insulin
CPT/HCPCS: 36415; 70450; 70551; 71045; 73700; 74176; 75635; 80048; 80053; 80069; 80202; 82962; 83036; 83605; 83690; 83735; 84100; 84443; 84478; 84484; 85025; 85610; 85730; 87040; 87077; 87081; 87186; 87205; 87340; 90935; 93005; 93306; 93925; 93926; 95819; 96365; 96367; A4565; G0378; J0692; J0696; J1642; J1815; J1885; J2185; J2405; J3490; J7060; J7131; P9047

== ENCOUNTER 2023-08-18 10:59 | Emergency (ER) | payer MEDICARE, OTHER ==
[~2023-08-18] VITALS: Ht 182.9 cm; Wt 61.0 kg
[~2023-08-18 10:59] MED LIST changes: +BRIM0.159 OP; +DORZ2SOL18 EACHEYE; +LATA0.008 EACHEYE; +LEVO500T91 PO; +MET50T PO; -NIF10C PO; -NIFE1TAB30 PO; +NIFE90TA75 PO
[2023-08-18 11:38] VITALS: BP 180/70; PULSE 87; RESP 18; O2SAT 99
== END 2023-08-18 11:35 | disposition left against medical advice (07) ==
LOC: ER 10:59
DX: I10 Essential (primary) hypertension (principal); Z53.21 Procedure and treatment not carried out due to patient leaving prior to being seen by health care provider

== ENCOUNTER 2023-12-12 02:43 | Emergency (ER) | payer MEDICARE, OTHER ==
[~2023-12-12] VITALS: Ht 182.9 cm; Wt 65.0 kg
[2023-12-12 03:22] LABS: Basophils # (auto) 0.1 10 ^3/uL (0-0.2); Eosinophils # (auto) 0.1 10 ^3/uL (0-0.8); Lymphocytes # (auto) 0.6 10 ^3/uL (0.4-5.4); Mean Corpuscular Hgb Conc. 30.4 g/dL (32.0-36.0); Neutrophils # (auto) 7.5 10 ^3/uL (1.6-8.6)
[2023-12-12 03:24] LABS: Basophils % (auto) 0.6 % (0.0-2.0); Eosinophils % (auto) 1.4 % (0.0-7.0); Hematocrit 32.8 % (41.0-53.0); Lymphocytes % (auto) 6.7 % (10.0-50.0); Mean Corpuscular Hemoglobin 24.7 pg (28.0-32.0); Mean Corpuscular Volume 81.1 fL (80.0-100.0); Monocytes # (auto) 0.4 10 ^3/uL (0-1.3); Neutrophils % (auto) 86.3 % (37.0-80.0); Red Blood Cells 4.05 10^6/uL (4.5-5.90); Red Cell Distribution Width 18.4 % (11.8-14.3); White Blood Cell 8.7 10^3/uL (4.4-10.8)
[2023-12-12] MEDS: DEXTROSE (50%) 50ML SYRG IV ONE (03:29)
[2023-12-12] MEDS: DEXTROSE 50% SYRINGE 50 ML IV ONE (03:29)
[2023-12-12 03:38] LABS: Alanine Aminotransferase 10 U/L (7-40); Albumin 3.6 g/dL (3.2-4.8); Alkaline Phosphatase 140 U/L (46-116); Anion Gap 4 (5-15); Aspartate Aminotransferase 15 U/L (13-40); BUN/Creatinine Ratio 15.7 (10.0-20.0); Blood Urea Nitrogen 25 mg/dL (9-23); Calcium 9.9 mg/dL (8.7-10.4); Carbon Dioxide 31 mmol/L (20-30); Chloride 97 mmol/L (98-107); Glucose 65 mg/dL (74-106); Potassium 2.9 mmol/L (3.5-5.1); Sodium 132 mmol/L (136-145)
[2023-12-12] MEDS: DEXTROSE 10% 1,000 ML IV SCH (03:38)
[2023-12-12 03:39] LABS: Bilirubin, Total 0.2 mg/dL (0.2-1.0); Total Protein 7.6 g/dL (5.7-8.2)
[2023-12-12 03:54] LABS: INR 1.18 (0.9-1.15); Partial Thromboplastin Time 31.2 SEC (24.5-34.5); Prothrombin Time 12.3 sec (9.3-11.8)
[2023-12-12] MEDS: levETIRAcetam 1000 mg/100ml 100 ML IV ONE (05:47)
[2023-12-12] MEDS: levoFLOXacin 750MG 150 ML IV ONE (06:05)
[2023-12-12 06:07] VITALS: BP 106/49; TEMP 98.7
[2023-12-12 06:09] VITALS: PULSE 65; RESP 16; O2SAT 100
== END 2023-12-12 06:20 | disposition short-term general hospital (02) ==
LOC: ER 02:43 → EDBD 02:43 → ER 06:20
DX: S06.5X0A Traumatic subdural hemorrhage without loss of consciousness, initial encounter (principal); R41.82 Altered mental status, unspecified; E78.5 Hyperlipidemia, unspecified; E11.22 Type 2 diabetes mellitus with diabetic chronic kidney disease; I12.0 Hypertensive chronic kidney disease with stage 5 chronic kidney disease or end stage renal disease; N18.6 End stage renal disease; E11.649 Type 2 diabetes mellitus with hypoglycemia without coma; J18.9 Pneumonia, unspecified organism; Z75.8 Other problems related to medical facilities and other health care; Z88.0 Allergy status to penicillin; X58.XXXA Exposure to other specified factors, initial encounter; Y93.89 Activity, other specified; Y92.89 Other specified places as the place of occurrence of the external cause; Y99.8 Other external cause status
CPT/HCPCS: 36415; 70450; 71045; 80053; 80320; 82962; 83605; 83880; 84484; 85025; 85379; 85610; 85730; 87040; 93005; 96361; 96365; 96368; 96375; 99285; J1953; J1956; J7042